=== PATIENT | female | born 1980 | race Caucasian/White ===

== ENCOUNTER 2016-07-14 15:07 | Emergency (ER) | payer OTHER ==
[~2016-07-14] VITALS: Ht 162.6 cm; Wt 63.2 kg
[~2016-07-14 15:07] MED LIST: CEFTIN500 MG PO; GLUCOPHAGE500 MG/TAB PO; JOINT BOOST1 TA1 PO; MULTIPLE VITAMI1 CAP PO; NORCO 325 MG-51 TAB PO; OMNICEF 300MG300 MG PO; REGLAN 10MG10 MG/TAB PO; ZOFRAN 4MG T4 MG/TAB PO; ZOFRAN ODT4 MG PO
[2016-07-14 15:10] VITALS: TEMP 98
[2016-07-14 17:30] VITALS: BP 128/78; PULSE 60
== END 2016-07-14 17:32 | disposition home or self-care (01) ==
LOC: COL.ER 15:07
DX: G43.909 Migraine, unspecified, not intractable, without status migrainosus (principal)
CPT/HCPCS: J1200; J1885; J2765; J7030